=== PATIENT | male | born 1955 | race Caucasian/White ===

== ENCOUNTER 2017-10-25 01:10 | Inpatient (IN) ==
[2017-10-25] MEDS ORDERED: Diphtheria/Tetanus/Pertussis Vaccine Inj 0.5 ML Syringe IM ONE (01:12)
[2017-10-25 01:33] LABS: Baso # (Auto) 0.1 th/mm3 (0.0-0.2); Baso % (Auto) 0.6 % (0.0-2.0); Eos # (Auto) 0.4 th/mm3 (0.0-0.4); Eos % (Auto) 2.3 % (0.0-4.0); Hematocrit 36.3 % (39.0-51.0); Hemoglobin 12.7 gm/dL (13.0-17.0); Lymph # (Auto) 2.7 th/mm3 (1.0-4.8); Lymph % (Auto) 18.2 % (9.0-44.0); Mean Corpuscular Hemoglobin 33.2 pg (27.0-34.0); Mean Corpuscular Volume 94.9 fL (80.0-100.0); Mean Platelet Volume 8.7 fL (7.0-11.0); Mono # (Auto) 1.1 th/mm3 (0.0-0.9); Mono % (Auto) 7.2 % (0.0-8.0); Neut # (Auto) 10.8 th/mm3 (1.8-7.7); Neut % (Auto) 71.7 % (16.0-70.0); Platelet Count 204 th/mm3 (150-450); Red Blood Count 3.82 mil/mm3 (4.50-5.90); Red Cell Distribution Width 12.6 % (11.6-17.2); White Blood Count 15.1 th/mm3 (4.0-11.0)
--- NOTE | 2017-10-25 01:34 | XR ---
EXAM DATE: 10/25/2017 1:22 AM EDT AGE/SEX: 89 years / Male INDICATIONS: Trauma Alert. Fall forward from a standing position. CLINICAL DATA: This is the patient's initial encounter. Patient reports that signs and symptoms have been present for 1 day and indicates a pain score of Nonresponsive. MEDICAL/SURGICAL HISTORY: Non-responsive. Non-responsive. COMPARISON: No prior exams available for comparison. FINDINGS: Portable AP view of the chest performed on a trauma backboard demonstrates a normal-sized cardiac yared houette. Lungs are underinflated and no pleural effusion, airspace consolidation, or pneumothorax is identified. Bones and soft tissues demonstrate no acute abnormality. CONCLUSION: No acute abnormality is identified. Electronically signed by: Tadeo Moralez MD 10/25/2017 1:32 AM EDT
--- NOTE | 2017-10-25 01:37 | CT ---
EXAM DATE: 10/25/2017 1:26 AM EDT AGE/SEX: 89 years / Male INDICATIONS: Trauma alert; fall. CLINICAL DATA: This is the patient's initial encounter. Patient reports that signs and symptoms have been present for 1 day and indicates a pain score of Nonresponsive. MEDICAL/SURGICAL HISTORY: Non-responsive. Non-responsive. RADIATION DOSE: 66.34 CTDI (mGy) COMPARISON: No prior exams available for comparison. TECHNIQUE: CT of the head without contrast. Using automated exposure control and adjustment of the mA and/or kV according to patient size, radiation dose was kept as low as reasonably achievable to ob tain optimal diagnostic quality images. DICOM format image data is available electronically for revi ew and comparison. FINDINGS: Cerebrum: The ventricles are normal. No midline shift, mass lesion, or acute infarction. There is s ubtle questionable hyperdensity in the interpeduncular fossa. No extraaxial fluid collections are see n. Posterior Fossa: The cerebellum and brainstem demonstrate no acute abnormality. The 4th ventricle is midline. The cerebellopontine angle is within normal limits. Extracranial: There is mucoperiosteal thickening within the ethmoid sinus. Skull: The calvaria is intact. No skull fracture. CONCLUSION: 1. Questionable high density is present in the interpeduncular fossa which could represent subtle ac elgin subarachnoid blood products. No other acute intracranial abnormality is identified. Since this is a questionable finding, suggest attention to this at follow-up imaging. 2. No other acute abnormality is identified. Electronically signed by: Tadeo Moralez MD 10/25/2017 1:35 AM EDT
[2017-10-25 01:41] LABS: Activated Partial Thrombo Time 22.6 sec (24.3-30.1); INR 1.1 Ratio; Prothrombin Time 10.7 sec (9.8-11.6)
--- NOTE | 2017-10-25 01:44 | CT ---
EXAM DATE: 10/25/2017 1:34 AM EDT AGE/SEX: 89 years / Male INDICATIONS: Trauma alert; fall. CLINICAL DATA: This is the patient's initial encounter. Patient reports that signs and symptoms have been present for 1 day and indicates a pain score of Nonresponsive. MEDICAL/SURGICAL HISTORY: Non-responsive. Non-responsive. RADIATION DOSE: 9.96 CTDI (mGy) COMPARISON: No prior exams available for comparison. TECHNIQUE: Multiple contiguous axial images were obtained through the abdomen. Images were obtained using multiple row detector helical technique. Using automated exposure control and adjustment of the mA and/or kV according to patient size, radiation dose was kept as low as reasonably achievable to o btain optimal diagnostic quality images. DICOM format image data is available electronically for rev iew and comparison. FINDINGS: Lower chest: There is mild dependent atelectasis. Hepatobiliary: Liver density is normal. No acute abnormality is appreciated on this noncontrast exami nation. No calcified gallstones are present. Kidneys: No hydronephrosis, stone, or mass. There is an exophytic fluid density lesion in the left mi d kidney measuring 2.9 cm characteristic of a simple cyst. In the left posterior perinephric space th ere is a 6.5 cm fluid density structure likely arising from the left mid kidney. There is mild strand ing in the adjacent fat. Adrenal Glands: Within normal limits. Spleen: Spleen is normal in size. No definite injury is identified. However, there is mild stranding in the fat adjacent to the inferior spleen. Pancreas: Within normal limits. Vascular: The aorta is nonaneurysmal. There is mild atherosclerotic disease. Bowel/Mesentery: The stomach and small bowel demonstrate no abnormality. No acute colon abnormality i s seen. There is no free intraperitoneal air or fluid. There is sigmoid diverticulosis. Abdominal Wall: No hernia is visualized. Retroperitoneum: No lymphadenopathy. Bladder: No wall thickening or mass. Reproductive: Prostate gland is enlarged. Inguinal: No lymphadenopathy or hernia. Musculoskeletal: No acute osseous abnormality is identified. There are degenerative changes of the jeni mbar spine. No fracture is identified. Changes in the left proximal femur including cortical thickeni ng are related to prior healed fracture post hardware removal. CONCLUSION: 1. There is an exophytic cyst arising from the left mid kidney measuring 6.5 cm. There is surroundin g stranding of the adjacent fat which may indicate acute injury in this area. The stranding there is also adjacent to the inferior spleen that cannot exclude splenic injury on this noncontrast examinati on. Suggest attention to these findings at follow-up imaging. 2. Nonacute findings include mild atherosclerotic disease and prostatomegaly. Electronically signed by: Tadeo Moralez MD 10/25/2017 1:42 AM EDT
--- NOTE | 2017-10-25 01:47 | CT ---
EXAM DATE: 10/25/2017 1:34 AM EDT AGE/SEX: 89 years / Male INDICATIONS: Trauma alert; fall. CLINICAL DATA: This is the patient's initial encounter. Patient reports that signs and symptoms have been present for 1 day and indicates a pain score of Nonresponsive. MEDICAL/SURGICAL HISTORY: Non-responsive. Non-responsive. RADIATION DOSE: 18.05 CTDI (mGy) COMPARISON: No prior exams available for comparison. TECHNIQUE: Contiguous images in the axial and coronal planes were obtained using helical multirow de tector technique. Using automated exposure control and adjustment of the mA and/or kV according to p atient size, radiation dose was kept as low as reasonably achievable to obtain optimal diagnostic haily lity images. DICOM format image data is available electronically for review and comparison. FINDINGS: Orbits: No fracture. The retroconal structures have a normal configuration. No radiopaque foreign bodies are seen. Nasal Bones: The nasal bones and maxillary spine are intact. Zygomatic Arches: Symmetric without fracture. Sinuses: There is mucoperiosteal thickening within the frontal, ethmoid, sphenoid, and right maxilla ry sinuses. No air-fluid levels are present. Nasal Cavity: The nasal septum is intact and midline. Soft Tissues: No radiopaque foreign bodies seen. There is mild soft tissue swelling anterior to the midline mandible. Other: The mandible and pterygoid plates are intact. Visualized intracranial structures demonstrate n o acute abnormality. CONCLUSION: 1. No maxillofacial fracture is identified. 2. Mild chronic appearing mucoperiosteal thickening throughout the paranasal sinuses. Electronically signed by: Tadeo Moralez MD 10/25/2017 1:46 AM EDT
--- NOTE | 2017-10-25 01:47 | ED ---
HPI General Chief Complaint: Trauma Alert Stated Complaint: Fall, Trauma alert Time Seen by Provider: 10/25/17 01:44 History of Present Illness HPI narrative: Patient is a unknown aged male somewhere in the 60s was at a bar apparently fell has a laceration to the left baptist area and was found unconscious unresponsive by the paramedics they said he was not responding to their stimulation and they were worried they went to possibly intubate him but on stimulation and IV placement he became little more arousable and then a liter of fluid brought his pressure up from 80/40 to 106/70 and he became more alert is placed on 2 L nasal cannula prior longboard c-collar and brought into the ER he arrives with normal vitals oxygen is normal he is opening his eyes to command however he appears intoxicated and altered mentally I decided I think this is mostly alcohol intoxication and defer intubating him right away I thought that his altered mental status was not due to head bleed and therefore I waited for the CAT scan to decide whether he needs airway protection at this moment he is protecting his airway and no signs of respiratory distress x-ray portable done in the trauma bay shows no pneumothorax and he has a CAT scan of head neck face and abdomen hpi and ROS limited due to intox Related Data Home Medications Medication Instructions Recorded Confirmed No Known Home Medications 10/25/17 10/25/17 Previous Rx's Medication Instructions Recorded tramadol 50 mg PO Q6H PRN #12 tab 10/27/17 Allergies Allergy/AdvReac Type Severity Reaction Status Date / Time No Known Allergies Allergy Unverified 10/25/17 17:31 Review of Systems ROS Unobtainable ROS Unobtainable: unobtainable due to mental condition (appears obtunded from etoh ) COUNT INCLUDES THE [facility] Medical History Medical History Hypertension (Acute) Family History Family History Other No significant family history Social History Social History Substance History: No History of Abuse Second Hand Smoke Exposure: Yes Smoking Status: Current every day smoker Tobacco Type: Cigarettes How Often Do You Have a Drink Containing Alcohol: 2 to 3 times a week Exam Const General: intoxicated appearing and lethargic [facility] Head: laceration (laceration to left baptist forehead area ) Eyes Pupils: PERRL and pupil size (2mm) bilaterally EOM: EOM intact bilaterally Chest Chest: normal inspection of the chest Resp Effort & Inspection: normal respiratory effort, no audible wheezes and no retractions Auscultation: clear to auscultation bilaterally Cardio Palpation: normal PMI Rate: regular rate Rhythm: regular rhythm GI Inspection: normal to inspection Palpation: soft Percussion: normal to percussion Skin Trauma: laceration (6 cm lac to left forehead baptist area ) Course Initial Documented Vital Signs Pulse Rate 82 10/25/17 06:25 Pulse Oximetry 98 10/25/17 06:25 Last Documented Vital Signs Temperature 97.8 F 10/27/17 12:00 Pulse Rate 71 10/27/17 15:46 Respiratory Rate 16 10/27/17 15:46 Blood Pressure 139/80 10/27/17 12:00 Pulse Oximetry 98 10/27/17 12:00 Procedures Laceration Laceration 1: Site: face Side (If applicable): left Size (cm): 6 Description: flap, irregular and clean Depth: simple, single layer Anesthetic used: lidocaine 1% Anesthesia technique:: local infiltration Amount (mL): 4 Pre-repair:: wound explored, irrigated extensively and deep structures intact Skin layer closed with: prolene Size (cm): 5-0 Number of sutures:: 5 Technique:: simple, interrupted and running Critical Care Time Critical Care Time: Yes Total Critical Care Time: 30 Attestation: airway breathing circulation initial trauma assessment and CT review eval of possible intracranila injury or bleeding ... lac repair head injury and cervical spine precaution close monitor of mental status for airway stability and possible need for possible intubation Neuro checks CT review admit ICU close neuro checks Medical Decision Making MDM Narrative Medical decision making narrative: In the ER he arrives with normal vitals oxygen is normal he is opening his eyes to command however he appears intoxicated and altered mentally I decided I think this is mostly alcohol intoxication and defer intubating him right away I thought that his altered mental status was not due to head bleed and therefore I waited for the CAT scan to decide whether he needs airway protection at this moment he is protecting his airway and no signs of respiratory distress Chest x-ray portable done in the trauma bay shows no pneumothorax and he has a CAT scan of head neck face and abdo chest , after some time his brother arrives and pt is much more awake alert and rosable he is obviously etoh intoxicated. Brother reports he is not a chronic etoh abuser just binges to excess, as he did tonight , pt eventually more awake PA repeairs his head laceartion and then admitted for observation and CT is read as possible small lucency question tiny blood possible admitted for observation and close repeat CT and neuro checks Lab Data Result diagrams: 10/26/17 03:41 10/26/17 03:41 Lab Results 10/25/17 10/25/17 10/25/17 Range/Units 01:12 01:12 01:12 WBC 15.1 H (4.0-11.0) th/mm3 RBC 3.82 L (4.50-5.90) mil/mm3 Hgb 12.7 L (13.0-17.0) gm/dL POC Hgb (Calc) 12.2 L (13.0-17.0) g/dL Hct 36.3 L (39.0-51.0) % POC Hct 36.0 L (39-51.0) % MCV 94.9 (80.0-100.0) fL MCH 33.2 (27.0-34.0) pg MCHC 35.0 (32.0-36.0) % RDW 12.6 (11.6-17.2) % Plt Count 204 (150-450) th/mm3 MPV 8.7 (7.0-11.0) fL Neut % (Auto) 71.7 H (16.0-70.0) % Lymph % (Auto) 18.2 (9.0-44.0) % [place] % (Auto) 7.2 (0.0-8.0) % Eos % (Auto) 2.3 (0.0-4.0) % Baso % (Auto) 0.6 (0.0-2.0) % Neut # (Auto) 10.8 H (1.8-7.7) th/mm3 Lymph # (Auto) 2.7 (1.0-4.8) th/mm3 [place] # (Auto) 1.1 H (0.0-0.9) th/mm3 Eos # (Auto) 0.4 (0.0-0.4) th/mm3 Baso # (Auto) 0.1 (0.0-0.2) th/mm3 WBC Differential . Differential Comment Auto diff final PT 10.7 (9.8-11.6) sec INR 1.1 Ratio APTT 22.6 L (24.3-30.1) sec POC Sodium 141 (137-144) mmol/L Sodium (136-145) meq/L POC Potassium 3.5 L (3.6-5.0) mmol/L Potassium (3.5-5.1) meq/L POC Chloride 103 (102-111) mmol/L Chloride (98-107) meq/L Carbon Dioxide (21.0-32.0) meq/L Anion Gap (5-15) meq/L POC BUN 14 (5-21) mg/dL BUN (7-18) mg/dL Creatinine (0.60-1.30) mg/dL POC Creatinine 1.6 H (0.6-1.3) mg/dL Estimated GFR (>89) mL/min POC Glucose 100 (68-110) mg/dL Random Glucose (74-106) mg/dL Lactic Acid (0.4-2.0) mmol/L Calcium (8.5-10.1) mg/dL Phosphorus (2.5-4.9) mg/dL Magnesium (1.5-2.5) mg/dL Total Bilirubin (0.2-1.0) mg/dL Direct Bilirubin (0.0-0.2) mg/dL Indirect Bilirubin (0.0-0.8) mg/dL AST (15-37) U/L ALT (12-78) U/L Alkaline Phosphatase (45-117) U/L Ammonia (11-32) mcmol/L Total Creatine Kinase (39-308) U/L Troponin I (0.02-0.05) ng/mL Total Protein (6.4-8.2) g/dL Albumin (3.4-5.0) g/dL Prealbumin (20-40) mg/dL Nasal Screen MRSA (PCR) (Negative) Salicylates (2.8-20.0) mg/dL Acetaminophen (10.0-30.0) mcg/mL Serum Alcohol (0-5) mg/dL Blood Type Blood Type Recheck Antibody Screen 10/25/17 10/25/17 10/25/17 Range/Units 01:12 06:15 06:15 WBC (4.0-11.0) th/mm3 RBC (4.50-5.90) mil/mm3 Hgb (13.0-17.0) gm/dL POC Hgb (Calc) (13.0-17.0) g/dL Hct (39.0-51.0) % POC Hct (39-51.0) % MCV (80.0-100.0) fL MCH (27.0-34.0) pg MCHC (32.0-36.0) % RDW (11.6-17.2) % Plt Count (150-450) th/mm3 MPV (7.0-11.0) fL Neut % (Auto) (16.0-70.0) % Lymph % (Auto) (9.0-44.0) % [place] % (Auto) (0.0-8.0) % Eos % (Auto) (0.0-4.0) % Baso % (Auto) (0.0-2.0) % Neut # (Auto) (1.8-7.7) th/mm3 Lymph # (Auto) (1.0-4.8) th/mm3 [place] # (Auto) (0.0-0.9) th/mm3 Eos # (Auto) (0.0-0.4) th/mm3 Baso # (Auto) (0.0-0.2) th/mm3 WBC Differential Differential Comment PT (9.8-11.6) sec INR Ratio APTT (24.3-30.1) sec POC Sodium (137-144) mmol/L Sodium (136-145) meq/L POC Potassium (3.6-5.0) mmol/L Potassium (3.5-5.1) meq/L POC Chloride (102-111) mmol/L Chloride (98-107) meq/L Carbon Dioxide (21.0-32.0) meq/L Anion Gap (5-15) meq/L POC BUN (5-21) mg/dL BUN (7-18) mg/dL Creatinine (0.60-1.30) mg/dL POC Creatinine (0.6-1.3) mg/dL Estimated GFR (>89) mL/min POC Glucose (68-110) mg/dL Random Glucose (74-106) mg/dL Lactic Acid (0.4-2.0) mmol/L Calcium (8.5-10.1) mg/dL Phosphorus 2.7 (2.5-4.9) mg/dL Magnesium 2.0 (1.5-2.5) mg/dL Total Bilirubin 0.6 (0.2-1.0) mg/dL Direct Bilirubin 0.2 (0.0-0.2) mg/dL Indirect Bilirubin 0.4 (0.0-0.8) mg/dL AST 26 (15-37) U/L ALT 22 (12-78) U/L Alkaline Phosphatase 59 (45-117) U/L Ammonia 18 (11-32) mcmol/L Total Creatine Kinase 202 (39-308) U/L Troponin I Less than 0.02 L (0.02-0.05) ng/mL Total Protein 6.7 (6.4-8.2) g/dL Albumin 3.5 (3.4-5.0) g/dL Prealbumin (20-40) mg/dL Nasal Screen MRSA (PCR) (Negative) Salicylates (2.8-20.0) mg/dL Acetaminophen Less than 2.0 L (10.0-30.0) mcg/mL Serum Alcohol 136 H (0-5) mg/dL Blood Type B Positive Blood Type Recheck Not needed Antibody Screen Negative 10/25/17 10/25/17 10/25/17 Range/Units 06:15 06:15 06:15 WBC (4.0-11.0) th/mm3 RBC (4.50-5.90) mil/mm3 Hgb (13.0-17.0) gm/dL POC Hgb (Calc) (13.0-17.0) g/dL Hct (39.0-51.0) % POC Hct (39-51.0) % MCV (80.0-100.0) fL MCH (27.0-34.0) pg MCHC (32.0-36.0) % RDW (11.6-17.2) % Plt Count (150-450) th/mm3 MPV (7.0-11.0) fL Neut % (Auto) (16.0-70.0) % Lymph % (Auto) (9.0-44.0) % [place] % (Auto) (0.0-8.0) % Eos % (Auto) (0.0-4.0) % Baso % (Auto) (0.0-2.0) % Neut # (Auto) (1.8-7.7) th/mm3 Lymph # (Auto) (1.0-4.8) th/mm3 [place] # (Auto) (0.0-0.9) th/mm3 Eos # (Auto) (0.0-0.4) th/mm3 Baso # (Auto) (0.0-0.2) th/mm3 WBC Differential Differential Comment PT (9.8-11.6) sec INR Ratio APTT (24.3-30.1) sec POC Sodium (137-144) mmol/L Sodium (136-145) meq/L POC Potassium (3.6-5.0) mmol/L Potassium (3.5-5.1) meq/L POC Chloride (102-111) mmol/L Chloride (98-107) meq/L Carbon Dioxide (21.0-32.0) meq/L Anion Gap (5-15) meq/L POC BUN (5-21) mg/dL BUN (7-18) mg/dL Creatinine (0.60-1.30) mg/dL POC Creatinine (0.6-1.3) mg/dL Estimated GFR (>89) mL/min POC Glucose (68-110) mg/dL Random Glucose (74-106) mg/dL Lactic Acid (0.4-2.0) mmol/L Calcium (8.5-10.1) mg/dL Phosphorus Cancelled (2.5-4.9) mg/dL Magnesium Cancelled (1.5-2.5) mg/dL Total Bilirubin (0.2-1.0) mg/dL Direct Bilirubin (0.0-0.2) mg/dL Indirect Bilirubin (0.0-0.8) mg/dL AST (15-37) U/L ALT (12-78) U/L Alkaline Phosphatase (45-117) U/L Ammonia (11-32) mcmol/L Total Creatine Kinase (39-308) U/L Troponin I (0.02-0.05) ng/mL Total Protein (6.4-8.2) g/dL Albumin (3.4-5.0) g/dL Prealbumin (20-40) mg/dL Nasal Screen MRSA (PCR) (Negative) Salicylates Less than 1.7 L (2.8-20.0) mg/dL Acetaminophen Cancelled (10.0-30.0) mcg/mL Serum Alcohol Cancelled (0-5) mg/dL Blood Type Blood Type Recheck Antibody Screen 10/25/17 10/25/17 10/25/17 Range/Units 14:50 14:50 17:04 WBC (4.0-11.0) th/mm3 RBC (4.50-5.90) mil/mm3 Hgb 13.4 (13.0-17.0) gm/dL POC Hgb (Calc) (13.0-17.0) g/dL Hct 38.3 L (39.0-51.0) % POC Hct (39-51.0) % MCV (80.0-100.0) fL MCH (27.0-34.0) pg MCHC (32.0-36.0) % RDW (11.6-17.2) % Plt Count (150-450) th/mm3 MPV (7.0-11.0) fL Neut % (Auto) (16.0-70.0) % Lymph % (Auto) (9.0-44.0) % [place] % (Auto) (0.0-8.0) % Eos % (Auto) (0.0-4.0) % Baso % (Auto) (0.0-2.0) % Neut # (Auto) (1.8-7.7) th/mm3 Lymph # (Auto) (1.0-4.8) th/mm3 [place] # (Auto) (0.0-0.9) th/mm3 Eos # (Auto) (0.0-0.4) th/mm3 Baso # (Auto) (0.0-0.2) th/mm3 WBC Differential Differential Comment PT (9.8-11.6) sec INR Ratio APTT (24.3-30.1) sec POC Sodium (137-144) mmol/L Sodium (136-145) meq/L POC Potassium (3.6-5.0) mmol/L Potassium (3.5-5.1) meq/L POC Chloride (102-111) mmol/L Chloride (98-107) meq/L Carbon Dioxide (21.0-32.0) meq/L Anion Gap (5-15) meq/L POC BUN (5-21) mg/dL BUN (7-18) mg/dL Creatinine (0.60-1.30) mg/dL POC Creatinine (0.6-1.3) mg/dL Estimated GFR (>89) mL/min POC Glucose 117 H (68-110) mg/dL Random Glucose (74-106) mg/dL Lactic Acid (0.4-2.0) mmol/L Calcium (8.5-10.1) mg/dL Phosphorus (2.5-4.9) mg/dL Magnesium (1.5-2.5) mg/dL Total Bilirubin (0.2-1.0) mg/dL Direct Bilirubin (0.0-0.2) mg/dL Indirect Bilirubin (0.0-0.8) mg/dL AST (15-37) U/L ALT (12-78) U/L Alkaline Phosphatase (45-117) U/L Ammonia (11-32) mcmol/L Total Creatine Kinase (39-308) U/L Troponin I Less than 0.02 L (0.02-0.05) ng/mL Total Protein (6.4-8.2) g/dL Albumin (3.4-5.0) g/dL Prealbumin (20-40) mg/dL Nasal Screen MRSA (PCR) (Negative) Salicylates (2.8-20.0) mg/dL Acetaminophen (10.0-30.0) mcg/mL Serum Alcohol (0-5) mg/dL Blood Type Blood Type Recheck Antibody Screen 10/25/17 10/25/17 10/26/17 Range/Units 20:16 23:52 03:41 WBC 10.9 (4.0-11.0) th/mm3 RBC 4.00 L (4.50-5.90) mil/mm3 Hgb 13.4 13.1 (13.0-17.0) gm/dL POC Hgb (Calc) (13.0-17.0) g/dL Hct 38.4 L 38.2 L (39.0-51.0) % POC Hct (39-51.0) % MCV 95.4 (80.0-100.0) fL MCH 32.7 (27.0-34.0) pg MCHC 34.3 (32.0-36.0) % RDW 12.9 (11.6-17.2) % Plt Count 199 (150-450) th/mm3 MPV 8.7 (7.0-11.0) fL Neut % (Auto) 63.5 (16.0-70.0) % Lymph % (Auto) 25.1 (9.0-44.0) % [place] % (Auto) 9.7 H (0.0-8.0) % Eos % (Auto) 1.3 (0.0-4.0) % Baso % (Auto) 0.4 (0.0-2.0) % Neut # (Auto) 6.9 (1.8-7.7) th/mm3 Lymph # (Auto) 2.7 (1.0-4.8) th/mm3 [place] # (Auto) 1.1 H (0.0-0.9) th/mm3 Eos # (Auto) 0.1 (0.0-0.4) th/mm3 Baso # (Auto) 0.0 (0.0-0.2) th/mm3 WBC Differential . Differential Comment Auto diff final PT (9.8-11.6) sec INR Ratio APTT (24.3-30.1) sec POC Sodium (137-144) mmol/L Sodium (136-145) meq/L POC Potassium (3.6-5.0) mmol/L Potassium (3.5-5.1) meq/L POC Chloride (102-111) mmol/L Chloride (98-107) meq/L Carbon Dioxide (21.0-32.0) meq/L Anion Gap (5-15) meq/L POC BUN (5-21) mg/dL BUN (7-18) mg/dL Creatinine (0.60-1.30) mg/dL POC Creatinine (0.6-1.3) mg/dL Estimated GFR (>89) mL/min POC Glucose 113 H (68-110) mg/dL Random Glucose (74-106) mg/dL Lactic Acid (0.4-2.0) mmol/L Calcium (8.5-10.1) mg/dL Phosphorus (2.5-4.9) mg/dL Magnesium (1.5-2.5) mg/dL Total Bilirubin (0.2-1.0) mg/dL Direct Bilirubin (0.0-0.2) mg/dL Indirect Bilirubin (0.0-0.8) mg/dL AST (15-37) U/L ALT (12-78) U/L Alkaline Phosphatase (45-117) U/L Ammonia (11-32) mcmol/L Total Creatine Kinase (39-308) U/L Troponin I (0.02-0.05) ng/mL Total Protein (6.4-8.2) g/dL Albumin (3.4-5.0) g/dL Prealbumin (20-40) mg/dL Nasal Screen MRSA (PCR) (Negative) Salicylates (2.8-20.0) mg/dL Acetaminophen (10.0-30.0) mcg/mL Serum Alcohol (0-5) mg/dL Blood Type Blood Type Recheck Antibody Screen 10/26/17 10/26/17 10/26/17 Range/Units 03:41 03:41 03:41 WBC (4.0-11.0) th/mm3 RBC (4.50-5.90) mil/mm3 Hgb (13.0-17.0) gm/dL POC Hgb (Calc) (13.0-17.0) g/dL Hct (39.0-51.0) % POC Hct (39-51.0) % MCV (80.0-100.0) fL MCH (27.0-34.0) pg MCHC (32.0-36.0) % RDW (11.6-17.2) % Plt Count (150-450) th/mm3 MPV (7.0-11.0) fL Neut % (Auto) (16.0-70.0) % Lymph % (Auto) (9.0-44.0) % [place] % (Auto) (0.0-8.0) % Eos % (Auto) (0.0-4.0) % Baso % (Auto) (0.0-2.0) % Neut # (Auto) (1.8-7.7) th/mm3 Lymph # (Auto) (1.0-4.8) th/mm3 [place] # (Auto) (0.0-0.9) th/mm3 Eos # (Auto) (0.0-0.4) th/mm3 Baso # (Auto) (0.0-0.2) th/mm3 WBC Differential Differential Comment PT 10.2 (9.8-11.6) sec INR 1.0 Ratio APTT 26.6 (24.3-30.1) sec POC Sodium (137-144) mmol/L Sodium 146 H (136-145) meq/L POC Potassium (3.6-5.0) mmol/L Potassium 3.5 (3.5-5.1) meq/L POC Chloride (102-111) mmol/L Chloride 112 H (98-107) meq/L Carbon Dioxide 26.9 (21.0-32.0) meq/L Anion Gap 7 (5-15) meq/L POC BUN (5-21) mg/dL BUN 12 (7-18) mg/dL Creatinine 0.87 (0.60-1.30) mg/dL POC Creatinine (0.6-1.3) mg/dL Estimated GFR 89 (>89) mL/min POC Glucose (68-110) mg/dL Random Glucose 100 (74-106) mg/dL Lactic Acid 1.5 (0.4-2.0) mmol/L Calcium 8.0 L (8.5-10.1) mg/dL Phosphorus 2.2 L (2.5-4.9) mg/dL Magnesium 2.1 (1.5-2.5) mg/dL Total Bilirubin 1.1 H (0.2-1.0) mg/dL Direct Bilirubin (0.0-0.2) mg/dL Indirect Bilirubin (0.0-0.8) mg/dL AST 22 (15-37) U/L ALT 20 (12-78) U/L Alkaline Phosphatase 56 (45-117) U/L Ammonia (11-32) mcmol/L Total Creatine Kinase (39-308) U/L Troponin I (0.02-0.05) ng/mL Total Protein 6.2 L (6.4-8.2) g/dL Albumin 3.3 L (3.4-5.0) g/dL Prealbumin 23 (20-40) mg/dL Nasal Screen MRSA (PCR) (Negative) Salicylates (2.8-20.0) mg/dL Acetaminophen (10.0-30.0) mcg/mL Serum Alcohol (0-5) mg/dL Blood Type Blood Type Recheck Antibody Screen 10/26/17 10/26/17 10/26/17 Range/Units 05:28 06:05 12:58 WBC (4.0-11.0) th/mm3 RBC (4.50-5.90) mil/mm3 Hgb (13.0-17.0) gm/dL POC Hgb (Calc) (13.0-17.0) g/dL Hct (39.0-51.0) % POC Hct (39-51.0) % MCV (80.0-100.0) fL MCH (27.0-34.0) pg MCHC (32.0-36.0) % RDW (11.6-17.2) % Plt Count (150-450) th/mm3 MPV (7.0-11.0) fL Neut % (Auto) (16.0-70.0) % Lymph % (Auto) (9.0-44.0) % [place] % (Auto) (0.0-8.0) % Eos % (Auto) (0.0-4.0) % Baso % (Auto) (0.0-2.0) % Neut # (Auto) (1.8-7.7) th/mm3 Lymph # (Auto) (1.0-4.8) th/mm3 [place] # (Auto) (0.0-0.9) th/mm3 Eos # (Auto) (0.0-0.4) th/mm3 Baso # (Auto) (0.0-0.2) th/mm3 WBC Differential Differential Comment PT (9.8-11.6) sec INR Ratio APTT (24.3-30.1) sec POC Sodium (137-144) mmol/L Sodium (136-145) meq/L POC Potassium (3.6-5.0) mmol/L Potassium (3.5-5.1) meq/L POC Chloride (102-111) mmol/L Chloride (98-107) meq/L Carbon Dioxide (21.0-32.0) meq/L Anion Gap (5-15) meq/L POC BUN (5-21) mg/dL BUN (7-18) mg/dL Creatinine (0.60-1.30) mg/dL POC Creatinine (0.6-1.3) mg/dL Estimated GFR (>89) mL/min POC Glucose 112 H 137 H (68-110) mg/dL Random Glucose (74-106) mg/dL Lactic Acid (0.4-2.0) mmol/L Calcium (8.5-10.1) mg/dL Phosphorus (2.5-4.9) mg/dL Magnesium (1.5-2.5) mg/dL Total Bilirubin (0.2-1.0) mg/dL Direct Bilirubin (0.0-0.2) mg/dL Indirect Bilirubin (0.0-0.8) mg/dL AST (15-37) U/L ALT (12-78) U/L Alkaline Phosphatase (45-117) U/L Ammonia (11-32) mcmol/L Total Creatine Kinase (39-308) U/L Troponin I (0.02-0.05) ng/mL Total Protein (6.4-8.2) g/dL Albumin (3.4-5.0) g/dL Prealbumin (20-40) mg/dL Nasal Screen MRSA (PCR) Not detected (Negative) Salicylates (2.8-20.0) mg/dL Acetaminophen (10.0-30.0) mcg/mL Serum Alcohol (0-5) mg/dL Blood Type Blood Type Recheck Antibody Screen 10/27/17 10/27/17 Range/Units 00:48 06:32 WBC (4.0-11.0) th/mm3 RBC (4.50-5.90) mil/mm3 Hgb (13.0-17.0) gm/dL POC Hgb (Calc) (13.0-17.0) g/dL Hct (39.0-51.0) % POC Hct (39-51.0) % MCV (80.0-100.0) fL MCH (27.0-34.0) pg MCHC (32.0-36.0) % RDW (11.6-17.2) % Plt Count (150-450) th/mm3 MPV (7.0-11.0) fL Neut % (Auto) (16.0-70.0) % Lymph % (Auto) (9.0-44.0) % [place] % (Auto) (0.0-8.0) % Eos % (Auto) (0.0-4.0) % Baso % (Auto) (0.0-2.0) % Neut # (Auto) (1.8-7.7) th/mm3 Lymph # (Auto) (1.0-4.8) th/mm3 [place] # (Auto) (0.0-0.9) th/mm3 Eos # (Auto) (0.0-0.4) th/mm3 Baso # (Auto) (0.0-0.2) th/mm3 WBC Differential Differential Comment PT (9.8-11.6) sec INR Ratio APTT (24.3-30.1) sec POC Sodium (137-144) mmol/L Sodium (136-145) meq/L POC Potassium (3.6-5.0) mmol/L Potassium (3.5-5.1) meq/L POC Chloride (102-111) mmol/L Chloride (98-107) meq/L Carbon Dioxide (21.0-32.0) meq/L Anion Gap (5-15) meq/L POC BUN (5-21) mg/dL BUN (7-18) mg/dL Creatinine (0.60-1.30) mg/dL POC Creatinine (0.6-1.3) mg/dL Estimated GFR (>89) mL/min POC Glucose 120 H 102 (68-110) mg/dL Random Glucose (74-106) mg/dL Lactic Acid (0.4-2.0) mmol/L Calcium (8.5-10.1) mg/dL Phosphorus (2.5-4.9) mg/dL Magnesium (1.5-2.5) mg/dL Total Bilirubin (0.2-1.0) mg/dL Direct Bilirubin (0.0-0.2) mg/dL Indirect Bilirubin (0.0-0.8) mg/dL AST (15-37) U/L ALT (12-78) U/L Alkaline Phosphatase (45-117) U/L Ammonia (11-32) mcmol/L Total Creatine Kinase (39-308) U/L Troponin I (0.02-0.05) ng/mL Total Protein (6.4-8.2) g/dL Albumin (3.4-5.0) g/dL Prealbumin (20-40) mg/dL Nasal Screen MRSA (PCR) (Negative) Salicylates (2.8-20.0) mg/dL Acetaminophen (10.0-30.0) mcg/mL Serum Alcohol (0-5) mg/dL Blood Type Blood Type Recheck Antibody Screen Imaging Data Radiologist's impression: Abdomen/Pelvis CT 10/25/17 00:00 CONCLUSION: 1. There is an exophytic cyst arising from the left mid kidney measuring 6.5 cm. There is surrounding stranding of the adjacent fat which may indicate acute injury in this area. The stranding there is also adjacent to the inferior spleen that cannot exclude splenic injury on this noncontrast examination. Suggest attention to these findings at follow-up imaging. 2. Nonacute findings include mild atherosclerotic disease and prostatomegaly. Head MRI 10/25/17 00:00 CONCLUSION: 1. No acute intracranial abnormality. 2. No brainstem abnormality. Head MRA 10/25/17 00:00 CONCLUSION: 1. No large vessel stenosis or aneurysm. 2. Atherosclerotic changes and mild narrowing of the left distal internal carotid artery Chest X-Ray 10/25/17 01:12 CONCLUSION: No acute abnormality is identified. Cervical Spine CT 10/25/17 01:14 CONCLUSION: 1. No acute cervical spine abnormality is identified. 2. Multilevel degenerative disc disease. Face CT 10/25/17 01:15 CONCLUSION: 1. No maxillofacial fracture is identified. 2. Mild chronic appearing mucoperiosteal thickening throughout the paranasal sinuses. Head CT 10/25/17 01:15 CONCLUSION: 1. Questionable high density is present in the interpeduncular fossa which could represent subtle acute subarachnoid blood products. No other acute intracranial abnormality is identified. Since this is a questionable finding, suggest attention to this at follow-up imaging. 2. No other acute abnormality is identified. Abdomen/Pelvis CT 10/27/17 05:00 CONCLUSION: 1. On the post contrasted study, I believe the perinephric fluid collection identified on the prior exam actually emanates from the kidney itself due to a small cortical laceration. 2. The fluid collection has decreased in density and is much smaller when compared to prior characteristic of a resolving perinephric hematoma. The spleen is intact. 3. Mild stranding in the subcutaneous tissues overlying the left hip probably representing direct trauma/contusion. 4. Enlarged prostate. Benign-appearing cyst in the medial midpole of the left kidney. Discharge Plan Discharge Disposition Patient Disposition: 01 Discharge Home Discharge Condition Condition: Stable Discharge Order Discharge Orders: Discharge Order (Routine); Ordered 10/27/17 Ordered By: Sree Carroll Physicians Team ED Provider: Salomon Decker ED Midlevel Provider: Danilo Presley Primary Care Provider: UNKNOWN, Attending Provider: Sree Carroll Status ED Status: Left Department Discharge Information Discharge Date/Time: 10/25/17 07:26
--- NOTE | 2017-10-25 01:51 | CT ---
EXAM DATE: 10/25/2017 1:35 AM EDT AGE/SEX: 89 years / Male INDICATIONS: Trauma alert; fall. CLINICAL DATA: This is the patient's initial encounter. Patient reports that signs and symptoms have been present for 1 day and indicates a pain score of Nonresponsive. MEDICAL/SURGICAL HISTORY: Non-responsive. Non-responsive. RADIATION DOSE: 20.77 CTDI (mGy) COMPARISON: No prior exams available for comparison. TECHNIQUE: Contiguous axial images were obtained using helical multirow detector technique. The vol umetric data was post-processed with multiplanar reconstruction in oblique axial, sagittal, and coron al planes. Using automated exposure control and adjustment of the mA and/or kV according to patient s ize, radiation dose was kept as low as reasonably achievable to obtain optimal diagnostic quality ceferino ges. DICOM format image data is available electronically for review and comparison. FINDINGS: There is normal sagittal spinal alignment of the cervical spine. No fracture or dislocation is identi fied. No anterolisthesis or retrolisthesis is present. Decreased disc height and degenerative disc di sease changes are present at C3-C4 and extending through C6-C7. The atlantoaxial relationship is with in normal limits and no prevertebral soft tissue swelling is present. The visualized surrounding stru ctures demonstrate no acute finding. There are emphysematous changes at the lung apices. CONCLUSION: 1. No acute cervical spine abnormality is identified. 2. Multilevel degenerative disc disease. Electronically signed by: Tadeo Moralez MD 10/25/2017 1:50 AM EDT
[2017-10-25] MEDS ORDERED: ceFAZolin 2 GM Premix Inj 2 GM/100 ML BAG IV.SIG ONE (02:00)
[2017-10-25] MEDS ORDERED: Acetaminophen 325 MG Tablet PO PRN (05:41)
[2017-10-25] MEDS ORDERED: Bisacodyl 10 MG Supp RECTAL PRN (05:41)
[2017-10-25] MEDS ORDERED: Haloperidol Inj 5 MG/ML Ampul IV.PUSH PRN (05:43)
[2017-10-25] MEDS ORDERED: LORazepam 1 MG Tablet PO PRN (05:43)
[2017-10-25] MEDS ORDERED: niCARdipine Inj 25 MG in Sodium Chlor 0.9% Inj 240 ML IV.CONT PRN (05:44)
[2017-10-25] MEDS ORDERED: Labetalol HCl Inj 100 MG/20 ML Vial IV.PUSH PRN (05:44)
--- NOTE | 2017-10-25 05:53 | P.HPCC ---
History of Present Illness Service: Critical care medicine Primary Care Physician: UNKNOWN Chief Complaint: EtOH History of Present Illness: This is a middle-aged male. First name is Sanjay. Date of admission 01/2018. Past medical history is for hypertension. This morning patient was found unresponsive by paramedics with a laceration to his left scientology region. He was initially found to be hypotensive and received IV placements of stimulation and crystalloid resuscitation at which time he became more alert. A trauma alert was called. When he arrived to the ED, he is opening his eyes to command however he appears intoxicated and altered mentally which was thought to be mostly due to the alcohol intoxication. This levels currently pending. CT brain revealed questionable increased high density in the intraventricular region/fossa possible subtle subarachnoid hemorrhage. Follow-up recommended. And pulse revealed possible stranding around spleen possible splenic injury. Left renal cyst. Noted to be in acute congestive creatinine 1.6. Leukocytosis. Normocytic anemia. We are asked to admit the patient. Currently in [facility] protocol. Repeat MRI brain/MRA brain ordered Inpatient Certification: I certify that the inpatient services were ordered in accordance with Medicare regulations governing the order. This includes certification that hospital inpatient services are reasonable and necessary and in the case of services not specified as inpatient-only under 42 CFR 419.22(n), that they are appropriately provided as inpatient services in accordance to with the 2-midnight benchmark under 43 CFR 412.3(e) Estimated Total Length of Stay (Days): 2 Plans for Post Hospital Care: Not yet determined Review of Systems unobtainable due to mental condition PMFSH - Medical History Medical History: Medical History (Last Updated 10/25/17 @ 05:56 by Herman Perez MD) Hypertension No significant past surgical history - Surgical History Surgical History: Surgical History (Last Updated 10/25/17 @ 05:56 by Herman Perez MD) No significant past surgical history (Acute) - Family History Family History: Family History (Last Updated 10/25/17 @ 05:56 by Herman Perez MD) Other No significant family history - Tobacco History Second Hand Smoke Exposure: No Tobacco Use In Past 30 Days: Yes Smoking Status: Refused to answer - Alcohol History How Often Do You Have a Drink Containing Alcohol: Unable to Obtain - Substance Use History Substance History: Unable to Obtain Medications and Allergies Active Medications: Active Medications Acetaminophen (Tylenol) 650 mg PO Q6H PRN PRN Reason: PAIN 1-10 AND/OR FEVER >101F Hydrocodone Bitart/Acetaminophen ([place] 5/325) 1 tab PO Q4H PRN PRN Reason: PAIN SCALE 1 TO 5 Al Hydroxide/Mg Hydroxide (Milk Of Magnesia Liq) 30 ml PO Q12H PRN PRN Reason: Mild Constipation Albuterol (Albuterol Neb ([facility])) 2.5 mg NEB Q2HR NEB PRN PRN Reason: SHORTNESS OF BREATH/WHEEZING Albuterol (Duoneb Neb ([facility])) 1 ampul NEB Q4HR NEB [facility] Bisacodyl (Dulcolax Supp) 10 mg RECTAL DAILY PRN PRN Reason: SEVERE CONSITIPATION Chlorhexidine Gluconate (Chlorhexidine 2% Cloth) 3 pack TOPICAL DAILY@0400 ROSE Stop: 10/31/17 03:59 Chlorhexidine Gluconate (Chlorhexidine 2% Cloth) 3 pack TOPICAL DAILY@0400 PRN PRN Reason: Extra cloth needed Stop: 10/31/17 03:59 Famotidine (Pepcid Pf Inj) 20 mg IV.PUSH Q12HR [facility] Flumazenil (Romazecon Inj) 0.2 mg IV.PUSH Q1M PRN PRN Reason: OVERSEDATION Haloperidol Lactate (Haldol Inj) 1 mg IV.PUSH Q15M PRN PRN Reason: for severe agitation Sodium Chloride (Ns Inj) 1,000 mls @ 84 mls/hr IV.CONT .[id number] [facility] Multivitamins 10 ml/ Thiamine HCl 100 mg/ Folic Acid 1 mg/Sodium Chloride 511.2 mls @ 125 mls/hr IV.SIG Q24H [facility] Stop: 10/27/17 10:06 Nicardipine HCl 25 mg/ Sodium (Chloride) 250 mls @ 50 mls/hr IV.CONT TITRATE PRN; Protocol PRN Reason: Per Protocol Labetalol HCl (Trandate Inj) 10 mg IV.PUSH Q1H PRN PRN Reason: Sbp>150, Dbp>90, Hr>65 Lactulose (Lactulose Liq) 30 ml PO DAILY PRN PRN Reason: SEVERE CONSITIPATION Lorazepam (Ativan) 1 mg PO Q4H PRN PRN Reason: for CIWA 8-10 Lorazepam (Ativan) 2 mg PO Q2H PRN PRN Reason: for CIWA 11-14 Lorazepam (Ativan Inj) 2 mg IV.PUSH Q2H PRN PRN Reason: for CIWA 11-14 Lorazepam (Ativan Inj) 2 mg IV.PUSH Q1H PRN PRN Reason: for CIWA 15-20 Lorazepam (Ativan Inj) 2 mg IV.PUSH Q15M PRN PRN Reason: for CIWA > 20 Lorazepam (Ativan Inj) 1 mg IV.PUSH Q4H PRN PRN Reason: for CIWA 8-10 Morphine Sulfate (Morphine Inj) 2 mg IV.PUSH Q2H PRN PRN Reason: PAIN SCALE 6 TO 10 Ondansetron HCl (Zofran Inj) 4 mg IV.PUSH Q6H PRN PRN Reason: NAUSEA OR VOMITING Senna/Docusate Sodium (Kacy-Colace) 1 tab PO BID ROSE Sennosides (Senokot) 17.2 mg PO Q12H PRN PRN Reason: Moderate Constipation Sodium Chloride (Ns Flush) 2 ml IV.FLUSH BID ROSE Sodium Chloride (Ns Flush) 2 ml IV.FLUSH PRN PRN PRN Reason: FLUSH AFTER USING IV ACCESS Allergies Allergy/AdvReac Type Severity Reaction Status Date / Time No Allergy Information Allergy Unverified 10/25/17 01:11 Available Results - Labs CBC & Chem 7: 10/25/17 01:12 Labs: Short CBC 10/25/17 Range/Units 01:12 WBC 15.1 H (4.0-11.0) th/mm3 Hgb 12.7 L (13.0-17.0) gm/dL Hct 36.3 L (39.0-51.0) % Plt Count 204 (150-450) th/mm3 - Imaging Impressions Abdomen/Pelvis CT 10/25/17 00:00 CONCLUSION: 1. There is an exophytic cyst arising from the left mid kidney measuring 6.5 cm. There is surrounding stranding of the adjacent fat which may indicate acute injury in this area. The stranding there is also adjacent to the inferior spleen that cannot exclude splenic injury on this noncontrast examination. Suggest attention to these findings at follow-up imaging. 2. Nonacute findings include mild atherosclerotic disease and prostatomegaly. Chest X-Ray 10/25/17 01:12 CONCLUSION: No acute abnormality is identified. Cervical Spine CT 10/25/17 01:14 CONCLUSION: 1. No acute cervical spine abnormality is identified. 2. Multilevel degenerative disc disease. Face CT 10/25/17 01:15 CONCLUSION: 1. No maxillofacial fracture is identified. 2. Mild chronic appearing mucoperiosteal thickening throughout the paranasal sinuses. Head CT 10/25/17 01:15 CONCLUSION: 1. Questionable high density is present in the interpeduncular fossa which could represent subtle acute subarachnoid blood products. No other acute intracranial abnormality is identified. Since this is a questionable finding, suggest attention to this at follow-up imaging. 2. No other acute abnormality is identified. Exam Vital signs: Intake & Output 10/24/17 10/24/17 10/25/17 06:59 18:59 06:59 Weight 88.451 kg - Constitutional no acute distress - Routine HEENT Exam Head: Present: normocephalic, abrasion, laceration. Absent: scalp tenderness Eye: Present: EOMI, PERRL ENT: Present: mucous membranes moist - Routine Neck Exam Present: supple. Absent: JVD, carotid bruit - Routine Chest/Breast/Axilla Exam Chest wall: Absent: tenderness Breast: Absent: tenderness Axillae: Absent: lymphadenopathy - Routine Respiratory Exam Present: CTA bilaterally. Absent: accessory muscle use, rhonchi, stridor - Routine Cardiovascular Exam Present: RRR, S1, S2. Absent: murmur, gallop - Routine Abdominal Exam Present: soft, normoactive bowel sounds. Absent: tenderness, distended - Routine Extremities Exam Absent: cyanosis, clubbing, edema - Routine Skin Exam Present: wounds. Absent: pallor - Routine Neurological Exam Present: alert, CN II-XII intact. Absent: sensory deficit, motor deficit - Detailed Neurological Exam: Coma Scale Eye Opening: Spontaneous Verbal Response: Confused Motor Response: Obey commands José Miguel Coma Scale Total: 14 Septic Shock Reassessment Septic shock perfusion: reassessment completed Caprini VTE Risk Assessment Caprini VTE Risk Assessment: Moderate/High Risk (score >= 2) VTE Pharmacological Exception Reason: Hemorrhage Caprini Risk Assessment Model: Point Value = 1 Point Value = 2 Point Value = 3 Point Value = 5 Age 41-60 Minor surgery BMI > 25 kg/m2 Swollen legs Varicose veins or History of unexplained or recurrent spontaneous Oral contraceptives or hormone replacement Sepsis (< 1 month) Serious lung disease, including pneumonia (< 1 month) Abnormal pulmonary function Acute myocardial infarction Congestive heart failure (< 1 month) History of inflammatory bowel disease Medical patient at bed rest Age 61-74 Arthroscopic surgery Major open surgery (> 45 min) Laparoscopic surgery (> 45 min) Malignancy Confined to bed (> 72 hours) Immobilizing plaster cast Central venous access Age >= 75 History of VTE Family history of VTE Factor V Leiden Prothrombin [id number] Lupus anticoagulant Anticardiolipin antibodies Elevated serum homocysteine Heparin-induced thrombocytopenia Other congenital or acquired thrombophilia Stroke (< 1 month) Elective arthroplasty Hip, pelvis, or leg fracture Acute spinal cord injury (< 1 month) Prophylaxis Regimen: Total Risk Factor Score Risk Level Prophylaxis Regimen 0-1 Low Early ambulation 2 Moderate Order ONE of the following: *Sequential Compression Device (SCD) *Heparin 5000 units SQ BID 3-4 Higher Order ONE of the following medications: *Heparin 5000 units SQ TID *Enoxaparin/Lovenox 40 mg SQ daily (WT < 150 kg, CrCl > 30 mL/min) *Enoxaparin/Lovenox 30 mg SQ daily (WT < 150 kg, CrCl > 10-29 mL/min) *Enoxaparin/Lovenox 30 mg SQ BID (WT < 150 kg, CrCl > 30 mL/min) AND/OR *Sequential Compression Device (SCD) 5 or more Highest Order ONE of the following medications: *Heparin 5000 units SQ TID (Preferred with Epidurals) *Enoxaparin/Lovenox 40 mg SQ daily (WT < 150 kg, CrCl > 30 mL/min) *Enoxaparin/Lovenox 30 mg SQ daily (WT < 150 kg, CrCl > 10-29 mL/min) *Enoxaparin/Lovenox 30 mg SQ BID (WT < 150 kg, CrCl > 30 mL/min) AND *Sequential Compression Device (SCD) Assessment and Plan - Assessment and Plan Plan: Neuro/Psych: Possible subarachnoid hemorrhage EtOH CT brain revealed high density in the interpedicular fossa. Possible subarachnoid hemorrhage. Follow-up recommendations We will plan MRI/MRA brain EtOH/DT withdrawals Fitzgerald protocol initiated Vitamin bag daily 3 days Acetaminophen 650 p.o. every 6 hours as needed fever Hydrocodone/acetaminophen 5/325 1 tablet every 4 hours as needed pain 1 through 5 Morphine sulfate 2 mg IV every 2 hours as needed pain 6 or 10 CV: History of essential hypertension Currently normal saline at 84 cc an hour As needed nicardipine drip/labetalol to keep systolic blood pressure less than 150 Resp: Nasal cannula to maintain saturations greater than equal 92% Incentive spirometry while awake Albuterol/ipratropium aerosols every 4 hours with albuterol aerosols every 2 hours as needed for dyspnea Atelectasis on CT abdomen/pelvis GI: Possible splenic laceration NPO Continue famotidine for GI prophylaxis Docusate sodium/senna 1 tablet twice daily for bowel regimen Repeat hemoglobin at noon/1800 hrs. : No indication for Das catheter Endo: Sliding scale insulin if indicated to maintain euglycemia Renal: Acute kidney injury Monitor urine output Accurate I's and O's Recheck BMP in a.m. 10/26 Heme: Leukocytosis Normocytic anemia Monitor CBC daily. Follow trends. No indication for transfusion of blood products at this time ID: Received 1 dose cefazolin and 0.5 mg IM DTaP MSK: PT evaluate and treat FEN: Replace electrolytes as clinically indicated Currently normal saline at 84 cc an hour Access -Utilize peripheral IV. Central line if indicated Prophylaxis -GI -famotidine -DVT -SCD/holding pharmacological prophylaxis in light of possible subarachnoid hemorrhage Admission 35 minutes critical care time
[2017-10-25] MEDS ORDERED: Potassium Chloride 25 MEQ Effervescent Tablet PO PRN (06:02)
[2017-10-25] MEDS ORDERED: Potassium Phosphate Inj 30 MMOL in Sodium Chlor 0.9% Inj 250 ML IV.SIG PRN (06:02)
[2017-10-25] MEDS ORDERED: Magnesium Sulfate Inj 2 GM in Sodium Chlor 0.9% Inj 96 ML IV.SIG PRN (06:02)
[2017-10-25] MEDS ORDERED: Magnesium Oxide 400 MG Tablet PO PRN (06:02)
[2017-10-25] MEDS ORDERED: Potassium Phosphate 500 MG Soluble Tablet PO PRN ×2 (06:02)
[2017-10-25] MEDS ORDERED: Potassium Chlor 20 mEq Premix 20 MEQ/100 ML PIGGYBACK IV.SIG PRN ×2 (06:02)
[2017-10-25] MEDS ORDERED: Magnesium Sulfate Inj 4 GM in Sodium Chlor 0.9% Inj 92 ML IV.SIG PRN (06:02)
[2017-10-25] MEDS ORDERED: Sodium Phosphate Inj 30 MMOL in Sodium Chlor 0.9% Inj 250 ML IV.SIG PRN (06:02)
[2017-10-25] MEDS ORDERED: Potassium Chlor 40 mEq Premix 40 MEQ/100 ML PIGGYBACK IV.SIG PRN ×2 (06:02)
[2017-10-25] MEDS ORDERED: Dextrose 50% in Water 50 ML Vial IV.PUSH PRN (06:03)
[2017-10-25 07:11] LABS: Albumin 3.5 g/dL (3.4-5.0); Aspartate Aminotransferase 26 U/L (15-37)
[2017-10-25 07:16] LABS: Alanine Aminotransferase 22 U/L (12-78); Alcohol 136 mg/dL (0-5); Alkaline Phosphatase 59 U/L (45-117); Creatine Kinase 202 U/L (39-308); Phosphorus 2.7 mg/dL (2.5-4.9); Total Protein 6.7 g/dL (6.4-8.2)
[2017-10-25] MEDS: Multivitamin Inj 10 ML, Thiamine Inj 100 MG, Folic Acid Inj 1 MG in Sodium Chlor 0.9% I... IV.SIG SCH (07:21)
[2017-10-25] MEDS: Sod Chloride 0.9% Inj 1,000 ML IV.CONT SCH ×2 (07:22→23:47)
[2017-10-25] MEDS: Senna/Docusate Sodium 8.6/50 MG Tablet PO SCH ×2 (08:48→20:13)
[2017-10-25] MEDS: Famotidine PF Inj 20 MG/2 ML Vial IV.PUSH SCH ×2 (08:48→20:12)
--- NOTE | 2017-10-25 09:31 | MR ---
EXAM DATE: 10/25/2017 9:27 AM EDT AGE/SEX: 89 years / Male INDICATIONS: Altered mental status. Fell and hit head. CLINICAL DATA: This is the patient's initial encounter. Patient reports that signs and symptoms have been present for 2 days and indicates a pain score of 3/10. MEDICAL/SURGICAL HISTORY: Hypertension. Left wrist fracture. . Left femur ORIF. [place] [facility] [place]. . TECHNIQUE: 3D [id number] MRA was performed. Source images, multiplanar STS MIP, and 3D volum e MIP reconstructions were reviewed. FINDINGS: There is excellent visualization of the major intracranial arteries out to the second-order branch ve ssels. There is no evidence for aneurysm, vessel truncation or stenosis, and no evidence for vascula r malformation. Anterior communicate artery. Hypoplastic left A1 segment. Vertebrobasilar junction no rmal. Mild narrowing left distal internal carotid artery. CONCLUSION: 1. No large vessel stenosis or aneurysm. 2. Atherosclerotic changes and mild narrowing of the left distal internal carotid artery Electronically signed by: Neil Villa MD 10/25/2017 9:30 AM EDT
--- NOTE | 2017-10-25 09:33 | MR ---
EXAM DATE: 10/25/2017 9:27 AM EDT AGE/SEX: 89 years / Male INDICATIONS: Altered mental status. Fell and hit head. CLINICAL DATA: This is the patient's initial encounter. Patient reports that signs and symptoms have been present for 2 days and indicates a pain score of 2/10. MEDICAL/SURGICAL HISTORY: Hypertension. Left wrist fracture. . Left femur ORIF. [place] [facility] [place] [facility] [place]. . TECHNIQUE: Multiplanar, multisequence examination of the brain was performed without contrast. FINDINGS: Cerebrum: The ventricles are normal for age. No evidence of midline shift, mass lesion, hemorrhage or acute infarction. No extraaxial fluid collections are seen. The pituitary gland and suprasellar cistern are normal in configuration. White Matter: No significant signal abnormalities are seen in the white matter. Posterior Fossa: The cerebellum and brainstem are intact. The 4th ventricle is midline. The cerebel lopontine angle is unremarkable. The cerebellar tonsils are normal in position. Diffusion Imaging: No focal areas of restricted diffusion are seen. No evidence of acute infarction . Scattered sinus disease. Extracranial: The visualized portions of the orbits and paranasal sinuses are unremarkable. CONCLUSION: 1. No acute intracranial abnormality. 2. No brainstem abnormality. Electronically signed by: Neil Villa MD 10/25/2017 9:32 AM EDT
[2017-10-25] MEDS: Insulin NovoLOG Aspart Correctional Sugar Inj SQ SCH ×3 (13:18→23:54)
[2017-10-25 15:22] LABS: Hematocrit 38.3 % (39.0-51.0); Hemoglobin 13.4 gm/dL (13.0-17.0)
[2017-10-25 20:28] LABS: Hematocrit 38.4 % (39.0-51.0); Hemoglobin 13.4 gm/dL (13.0-17.0)
[2017-10-26] MEDS: Chlorhexidine Gluconate 2% 1 Pack (2 Cloths) TOPICAL SCH (03:37)
[2017-10-26] MEDS ORDERED: Chlorhexidine Gluconate 2% 1 Pack (2 Cloths) TOPICAL PRN (04:00)
[2017-10-26 04:12] LABS: Baso % (Auto) 0.4 % (0.0-2.0); Eos # (Auto) 0.1 th/mm3 (0.0-0.4); Eos % (Auto) 1.3 % (0.0-4.0); Hematocrit 38.2 % (39.0-51.0); Hemoglobin 13.1 gm/dL (13.0-17.0); Lymph # (Auto) 2.7 th/mm3 (1.0-4.8); Lymph % (Auto) 25.1 % (9.0-44.0); Mean Corpuscular HGB Conc 34.3 % (32.0-36.0); Mean Corpuscular Hemoglobin 32.7 pg (27.0-34.0); Mean Corpuscular Volume 95.4 fL (80.0-100.0); Mean Platelet Volume 8.7 fL (7.0-11.0); Mono # (Auto) 1.1 th/mm3 (0.0-0.9); Mono % (Auto) 9.7 % (0.0-8.0); Neut # (Auto) 6.9 th/mm3 (1.8-7.7); Neut % (Auto) 63.5 % (16.0-70.0); Platelet Count 199 th/mm3 (150-450); Red Cell Distribution Width 12.9 % (11.6-17.2); White Blood Count 10.9 th/mm3 (4.0-11.0)
[2017-10-26 04:21] LABS: Activated Partial Thrombo Time 26.6 sec (24.3-30.1); Prothrombin Time 10.2 sec (9.8-11.6)
[2017-10-26 04:55] LABS: Alanine Aminotransferase 20 U/L (12-78); Albumin 3.3 g/dL (3.4-5.0); Anion Gap 7 meq/L (5-15); Aspartate Aminotransferase 22 U/L (15-37); Blood Urea Nitrogen 12 mg/dL (7-18); Carbon Dioxide 26.9 meq/L (21.0-32.0); Chloride 112 meq/L (98-107); Glomerular Filtration Rate 89 mL/min (>89); Glucose,Random 100 mg/dL (74-106); Magnesium 2.1 mg/dL (1.5-2.5); Potassium 3.5 meq/L (3.5-5.1); Sodium 146 meq/L (136-145)
[2017-10-26 04:59] LABS: Alkaline Phosphatase 56 U/L (45-117); Phosphorus 2.2 mg/dL (2.5-4.9); Prealbumin 23 mg/dL (20-40); Total Protein 6.2 g/dL (6.4-8.2)
[2017-10-26] MEDS: Multivitamin Inj 10 ML, Thiamine Inj 100 MG, Folic Acid Inj 1 MG in Sodium Chlor 0.9% I... IV.SIG SCH (05:17)
[2017-10-26] MEDS: Insulin NovoLOG Aspart Correctional Sugar Inj SQ SCH ×3 (05:30→20:56)
[2017-10-26] MEDS: Sod Chloride 0.9% Inj 1,000 ML IV.CONT SCH ×3 (06:33→20:55)
[2017-10-26] MEDS: Famotidine PF Inj 20 MG/2 ML Vial IV.PUSH SCH ×2 (09:46→20:58)
[2017-10-26] MEDS: Senna/Docusate Sodium 8.6/50 MG Tablet PO SCH ×2 (09:47→20:58)
[2017-10-26] MEDS: Morphine Inj 4 MG/ML Vial IV.PUSH PRN ×3 (14:14→20:58)
--- NOTE | 2017-10-26 15:28 | P.PNCC ---
Subjective Subjective Remarks/Hospital Course: This is a middle-aged male. First name is Sanjay. Date of admission 01/2018. Past medical history is for hypertension. This morning patient was found unresponsive by paramedics with a laceration to his left islam region. He was initially found to be hypotensive and received IV placements of stimulation and crystalloid resuscitation at which time he became more alert. A trauma alert was called. When he arrived to the ED, he is opening his eyes to command however he appears intoxicated and altered mentally which was thought to be mostly due to the alcohol intoxication. This levels currently pending. CT brain revealed questionable increased high density in the intraventricular region/fossa possible subtle subarachnoid hemorrhage. Follow-up recommended. CT revealed possible stranding around spleen possible splenic injury. Left renal cyst. Noted to be in acute congestive creatinine 1.6. Leukocytosis. Normocytic anemia. We are asked to admit the patient. Currently in CIME protocol. Repeat MRI brain/MRA brain ordered 10/26: Patient remains lethargic but cooperative. Hemoglobin stable. Unsteady but ambulating with assistance with physical therapy. Alcohol level was 136 on admission. We suspect that chronic use is been the cause of his previous falls as well. Presently on CIME protocol. MRA and MRI of the brain are benign. Only additional findings are a probable large left renal cyst and a possible lower pole splenic injury described on the first abdominal CT. A repeat enhanced CT of the abdomen is ordered for early tomorrow morning following which he can probably be discharged if neurologic recovery continues. Objective Vital Signs / I&O: Vital Signs 10/25/17 15:25 10/25/17 16:00 10/25/17 19:37 Temperature 98.8 F Pulse Rate 72 70 66 Respiratory Rate 16 13 16 Blood Pressure 136/69 Pulse Oximetry 96 10/25/17 20:00 10/25/17 23:25 10/26/17 00:00 Temperature 98.3 F Pulse Rate 74 54 L 75 Respiratory Rate 23 16 17 Blood Pressure 138/69 139/86 Pulse Oximetry 98 96 10/26/17 03:15 10/26/17 04:00 10/26/17 08:00 Temperature 98.5 F 98.1 F Pulse Rate 53 L 50 L 65 Respiratory Rate 16 17 13 Blood Pressure 124/65 127/72 Pulse Oximetry 96 10/26/17 11:36 10/26/17 12:00 Temperature 98.1 F Pulse Rate 57 L 60 Respiratory Rate 14 15 Blood Pressure 157/72 H Pulse Oximetry 97 Intake & Output 10/25/17 10/26/17 10/26/17 18:59 06:59 18:59 Intake Total 636.2 / 636.2 2067 / 2067 511.2 / 511.2 Output Total 1250 / 1250 950 / 950 Balance -613.8 / -613.8 1118 / 1118 511.2 / 511.2 Weight 86.1 kg Intake: IV 511.2 / 511.2 1588 / 1588 511.2 / 511.2 NS Inj 1,000 ML @ 84 mls/hr IV. 1588 / 1588 CONT .[id number] [facility] Rx#:[id number] MVI-12 Inj 10 ML Thiamine Inj 511.2 / 511.2 511.2 / 511.2 100 MG Folvite Inj 1 MG In NS Inj 500 ML @ 125 mls/hr IV.SIG Q24H [facility] Rx#:[id number] Oral 125 / 125 480 / 480 Output: Urine 1250 / 1250 950 / 950 Urine/Stool Mix 0 / 0 Other: # Voids 6 Date of Last Bowel Movement 10/24/17 10/24/17 10/26/17 Result Diagrams: 10/26/17 03:41 10/26/17 03:41 Objective Remarks: - Constitutional no acute distress, lethargic - Routine HEENT Exam Head: Present: normocephalic, abrasion, laceration. Absent: scalp tenderness Eye: Present: EOMI, PERRL ENT: Present: mucous membranes moist - Routine Neck Exam Present: supple. Airway widely patent, no obstructive noises. Absent: JVD, carotid bruit - Routine Chest/Breast/Axilla Exam Chest wall: Absent: tenderness Breast: Absent: tenderness Axillae: Absent: lymphadenopathy - Routine Respiratory Exam Present: CTA bilaterally. Comfortable respiratory pattern. Absent: accessory muscle use, rhonchi, stridor - Routine Cardiovascular Exam Present: RRR, S1, S2. No JVD. Absent: murmur, gallop - Routine Abdominal Exam Present: soft, normoactive bowel sounds. No guarding. Absent: tenderness, distended - Routine Extremities Exam Warm, well-perfused. Absent: cyanosis, clubbing, edema - Routine Skin Exam Present: wounds. Absent: pallor - Routine Neurological Exam Present: alert, lethargic CN II-XII intact. Moves 4 limbs to command. Absent: sensory deficit, motor deficit - Detailed Neurological Exam: Coma Scale Eye Opening: Spontaneous Verbal Response: Remains confused Motor Response: Obey commands Virgil Coma Scale Total: 15 Assessment and Plan - Assessment and Plan Plan: Neuro/Psych: Possible subarachnoid hemorrhage EtOH CT brain revealed high density in the interpedicular fossa. Possible subarachnoid hemorrhage. EtOH/DT withdrawals CIWA protocol initiated Vitamin bag daily 3 days Acetaminophen 650 p.o. every 6 hours as needed fever Hydrocodone/acetaminophen 5/325 1 tablet every 4 hours as needed pain 1 through 5 Morphine sulfate 2 mg IV every 2 hours as needed pain 6 or 10 MRA, MRI brain are normal CV: History of essential hypertension Currently normal saline at 84 cc an hour, wean off and advance diet. As needed nicardipine drip/labetalol to keep systolic blood pressure less than 150 Resp: Nasal cannula to maintain saturations greater than equal 92% Incentive spirometry while awake Albuterol/ipratropium aerosols every 4 hours with albuterol aerosols every 2 hours as needed for dyspnea Atelectasis on CT abdomen/pelvis GI: Possible splenic laceration Diet okay Continue famotidine for GI prophylaxis Docusate sodium/senna 1 tablet twice daily for bowel regimen Repeat hemoglobin : No indication for Das catheter Endo: Sliding scale insulin if indicated to maintain euglycemia Renal: Acute kidney injury Monitor urine output Accurate I's and O's Recheck BMP in a.m. / Heme: Leukocytosis Normocytic anemia Monitor CBC daily. Follow trends. No indication for transfusion of blood products at this time ID: Received 1 dose cefazolin and 0.5 mg IM DTaP MSK: PT evaluate and treat FEN: Replace electrolytes as clinically indicated Currently normal saline at 84 cc an hour Access -Utilize peripheral IV. Central line if indicated Prophylaxis -GI -famotidine -DVT -SCD/holding pharmacological prophylaxis in light of possible subarachnoid hemorrhage Overall impression: This recent and other previous falls appear to be related to excessive alcohol use. We find no other neurologic or cardiovascular pathology to explain the falls. Physical therapy is mobilized patient and we are trying to sort out a safe disposition for him. Prior to discharge he will receive an enhanced CAT scan of the abdomen to rule out injury of the inferior pole of the spleen, as suggested following the first CAT scan.
[2017-10-27] MEDS: Insulin NovoLOG Aspart Correctional Sugar Inj SQ SCH ×2 (04:58→06:34)
[2017-10-27] MEDS: Chlorhexidine Gluconate 2% 1 Pack (2 Cloths) TOPICAL SCH (04:59)
[2017-10-27] MEDS: Sod Chloride 0.9% Inj 1,000 ML IV.CONT SCH (06:34)
[2017-10-27 07:52] VITALS: RESP 16
--- NOTE | 2017-10-27 10:17 | CT ---
EXAM DATE: 10/27/2017 10:02 AM EDT AGE/SEX: 62 years / Male INDICATIONS: Trauma, follow up spleen injury. CLINICAL DATA: This is the patient's subsequent encounter. Patient reports that signs and symptoms h ave been present for 3 days and indicates a pain score of 5/10. MEDICAL/SURGICAL HISTORY: Hypertension. None. ORAL CONTRAST: No oral contrast ingested. RADIATION DOSE: 9.86 CTDI (mGy) [place] [facility] [place]AST[place] 10/25/2017. . TECHNIQUE: Multiple contiguous axial images were obtained through the abdomen and pelvis following b olus infusion of 95 ml Omnipaque 350 (iohexol) nonionic water-soluble contrast as a single exam dos e. No oral contrast ingested. Using automated exposure control and adjustment of the mA and/or kV ac cording to patient size, radiation dose was kept as low as reasonably achievable to obtain optimal di agnostic quality images. DICOM format image data is available electronically for review and comparis on. FINDINGS: Lower Lungs: Bibasilar atelectatic changes. No confluent infiltrate. Liver: The liver has a homogeneous density without space-occupying lesion. There is no dilation of th e biliary tree. Spleen: Homogeneous density without enlargement. Pancreas: Unremarkable without mass or calcification. Kidneys: 2.3 cm cyst pedunculated off the medial mid pole of the left kidney. Fluid collection is ag ain identified adjacent to the posterior lateral mid pole of the left kidney and I believe may be ayd nating from the kidney itself with a small tongue of fluid extending into the renal parenchyma. The f luid collection was previously high density and measured approximately 8 cm in the greatest SI obliqu e dimension and is much smaller and lower in density measuring approximately 3.9 cm in diameter judah cteristic of resolving hematoma. Adrenal Glands: Unremarkable. Aorta: Scattered athetotic calcification of the infrarenal abdominal aorta Bowel/Mesentery: The bowel loops are grossly unremarkable. The cecum and sigmoid colon have a normal configuration. Abdominal Wall: Intact. Retroperitoneum: No evidence of adenopathy in the retrocrural, para-aortic, or deep pelvic regions. Bladder: Contours are smooth. Reproductive Organs: Prostate is enlarged Inguinal: The inguinal region is unremarkable without evidence of adenopathy. Bony Structures: Bony structures are all intact. Intramedullary channel through the proximal left fe mur may represent an old medullary darrel. There is some stranding in the subcutaneous tissues overlying the left hip which may represent focal hematoma. Post Contrast: No abnormal areas of enhancement seen. CONCLUSION: 1. On the post contrasted study, I believe the perinephric fluid collection identified on the prior exam actually emanates from the kidney itself due to a small cortical laceration. 2. The fluid collection has decreased in density and is much smaller when compared to prior characte ristic of a resolving perinephric hematoma. The spleen is intact. 3. Mild stranding in the subcutaneous tissues overlying the left hip probably representing direct tr auma/contusion. 4. Enlarged prostate. Benign-appearing cyst in the medial midpole of the left kidney. Electronically signed by: Toño Tse MD 10/27/2017 10:16 AM EDT
[2017-10-27] MEDS: Multivitamin Inj 10 ML, Thiamine Inj 100 MG, Folic Acid Inj 1 MG in Sodium Chlor 0.9% I... IV.SIG SCH (10:34)
[2017-10-27] MEDS: Famotidine PF Inj 20 MG/2 ML Vial IV.PUSH SCH (10:35)
[2017-10-27] MEDS: Senna/Docusate Sodium 8.6/50 MG Tablet PO SCH (10:36)
[2017-10-27 15:24] VITALS: O2SAT 98
[2017-10-27 15:29] VITALS: BP 139/80; PULSE 71; TEMP 97.8
--- NOTE | 2017-10-27 18:27 | P.PN ---
Subjective Interval history: Nursing denies any deterioration since last night. Patient reports having this headache since recovering with consciousness. Denies any nausea vomiting. Tolerating p.o. intake. Ambulating slowly to the bathroom with supervision, with a steady gait. Physical Exam Vital signs: Vital Signs 10/26/17 19:39 10/26/17 20:39 10/26/17 23:21 Temperature 98.2 F 98.2 F Pulse Rate 61 61 62 Respiratory Rate 18 18 18 Blood Pressure 147/84 H 142/79 H Pulse Oximetry 96 97 10/27/17 00:00 10/27/17 00:14 10/27/17 03:41 Temperature Pulse Rate 59 L 60 Respiratory Rate 18 16 16 Blood Pressure Pulse Oximetry 10/27/17 04:00 10/27/17 04:44 10/27/17 07:51 Temperature 98.2 F Pulse Rate 66 52 L Respiratory Rate 16 18 16 Blood Pressure 127/66 Pulse Oximetry 96 10/27/17 08:00 10/27/17 11:49 10/27/17 12:00 Temperature 97.5 F L 97.8 F Pulse Rate 54 L 57 L 71 Respiratory Rate 18 16 16 Blood Pressure 147/80 H 139/80 Pulse Oximetry 98 98 10/27/17 15:46 Temperature Pulse Rate 71 Respiratory Rate 16 Blood Pressure Pulse Oximetry Intake & Output 10/26/17 10/27/17 10/27/17 18:59 06:59 18:59 Intake Total 1523.2 / 1523.2 360 / 360 Output Total 1300 / 1300 900 / 900 Balance 223.2 / 223.2 -540 / -540 Weight 86.1 kg 86.1 kg Intake: IV 923.2 / 923.2 NS Inj 1,000 ML @ 84 mls/hr IV. 412 / 412 CONT .[id number] ROSE Rx#:[id number] MVI-12 Inj 10 ML Thiamine Inj 511.2 / 511.2 100 MG Folvite Inj 1 MG In NS Inj 500 ML @ 125 mls/hr IV.SIG Q24H ROSE Rx#:[id number] Oral 600 / 600 360 / 360 Output: Urine 1300 / 1300 900 / 900 Other: # Voids 1 Date of Last Bowel Movement 10/26/17 10/26/17 10/26/17 Weight On Admission 86.1 kg Narrative: No facial droop, no slurred speech, pupils intact symmetrically bilaterally with good reflex Awake and alert and oriented 3 Is able to ambulate safely and slowly independently to the restroom hAs bruising on his left frontal temporal area Results - Labs CBC & Chem 7: 10/26/17 03:41 10/26/17 03:41 Laboratory Results - last 24 hr 10/27/17 10/27/17 00:48 06:32 POC Glucose 120 H 102 - Imaging Impressions Abdomen/Pelvis CT 10/27/17 05:00 CONCLUSION: 1. On the post contrasted study, I believe the perinephric fluid collection identified on the prior exam actually emanates from the kidney itself due to a small cortical laceration. 2. The fluid collection has decreased in density and is much smaller when compared to prior characteristic of a resolving perinephric hematoma. The spleen is intact. 3. Mild stranding in the subcutaneous tissues overlying the left hip probably representing direct trauma/contusion. 4. Enlarged prostate. Benign-appearing cyst in the medial midpole of the left kidney. Assessment and Plan - Plan Left cranial contusion -Secondary to alcohol intoxication. Stable at this point. CT had showed possible findings suggestive of very subtle subarachnoid hemorrhage per radiology. Patient has been extensively counseled to avoid nonsteroidal anti- inflammatory drugs as well as aspirin. Informed that he needs to follow-up with PCP and possibly get a repeat head CT in a few weeks to ensure resolution of this. Informed him that he can take narcotic medication for the headache associated with this contusion injury. Alcohol intoxication CIWA score is 0-1 per nursing. Very alert and oriented today. Intoxication has resolved. Pt has met maximal benefit from hospitalization is clinically stable for discharge.
== END 2017-10-27 18:04 | disposition home or self-care (01) ==
LOC: NEPI 01:10 → NEDA 05:36 → EDBD 05:36 → NEDA 07:26 → N03 07:29 → N06 10-26 16:38
PROVIDERS: ADMIT Hospitalist; ATTEND Hospitalist